=== PATIENT | female | born 1960 | race Caucasian/White ===

== ENCOUNTER 2025-01-19 12:54 | Inpatient (IN) | payer SELFPAY ==
[~2025-01-19 12:54] MED LIST: Iopamidol-370 76% 500 ML MDV (1 ML CHARGE) ONE
[2025-01-19 14:38] LABS: #Basophils 0.03 10x3/uL (0.0-0.2); #Eosinophils 0.10 10x3/uL (0.0-0.7); #Monocytes 0.95 10x3/uL (0.11-0.59); #Neutrophils 7.14 10x3/uL (1.40-6.50); %Basophils 0.3 % (0.0-1.0); %Eosinophils 1.0 % (0.0-10.0); %Lymphocytes 14.2 % (21.0-51.0); %Monocytes 9.9 % (0.0-10.0); %Neutrophils 74.3 % (42.0-75.0); Hematocrit 40.1 % (36.0-47.0); Hemoglobin 12.3 g/dL (12.0-16.0); Mean Corpuscular Hemoglobin 26.2 pg (27.0-31.0); Mean Corpuscular Volume 85.5 fL (78.0-98.0); Platelet Count 634 10x3/uL (130-400); Red Blood Cell (RBC) Count 4.69 mill/uL (4.20-5.40); White Blood Cell (WBC) Count 9.61 10x3/uL (4.8-10.8)
[2025-01-19 14:56] LABS: ALT (SGPT) 9 U/L (Less than 34); AST (SGOT) 30 U/L (11-34); Albumin 3.0 g/dL (3.1-4.5); Alkaline Phosphatase 170 U/L (40-110); Anion Gap 14 mmol/L (10-20); BUN (Urea Nitrogen) 22 mg/dL (9.8-20.1); Bilirubin, Total 0.6 mg/dL (0.3-1.2); Calc. Creatinine Clearance 0 mL/min (70-130); Calcium 9.5 mg/dL (7.8-10.44); Carbon Dioxide 29 mmol/L (23-31); Chloride 102 mmol/L (98-107); Globulin 4.1 g/dL (2.4-3.5); Glucose 102 mg/dL (80-115); Potassium 3.8 mmol/L (3.5-5.1); Sodium 141 mmol/L (136-145)
[2025-01-19] MEDS ORDERED: Calcium Carbonate 500 MG ChewTAB PO PRN (18:23)
[2025-01-19] MEDS ORDERED: Guaifenesin DM 100-10/5 ML UDCUP PO PRN (18:23)
[2025-01-19 20:28] VITALS: BMI 29.2
[2025-01-19] MEDS: Acetaminophen 325 MG TAB PO SCH (21:01)
[2025-01-20 05:56] LABS: #Basophils 0.03 10x3/uL (0.0-0.2); #Eosinophils 0.12 10x3/uL (0.0-0.7); #Monocytes 0.90 10x3/uL (0.11-0.59); #Neutrophils 6.57 10x3/uL (1.40-6.50); %Basophils 0.3 % (0.0-1.0); %Eosinophils 1.3 % (0.0-10.0); %Lymphocytes 14.1 % (21.0-51.0); %Monocytes 10.1 % (0.0-10.0); %Neutrophils 73.8 % (42.0-75.0); Hematocrit 36.0 % (36.0-47.0); Hemoglobin 11.0 g/dL (12.0-16.0); Mean Corpuscular Hemoglobin 26.3 pg (27.0-31.0); Mean Corpuscular Volume 86.1 fL (78.0-98.0); Platelet Count 580 10x3/uL (130-400); Red Blood Cell (RBC) Count 4.18 mill/uL (4.20-5.40); White Blood Cell (WBC) Count 8.92 10x3/uL (4.8-10.8)
[2025-01-20 06:30] LABS: Anion Gap 14 mmol/L (10-20); BUN (Urea Nitrogen) 18 mg/dL (9.8-20.1); Calc. Creatinine Clearance 142 mL/min (70-130); Calcium 9.1 mg/dL (7.8-10.44); Carbon Dioxide 26 mmol/L (23-31); Chloride 104 mmol/L (98-107); Glucose 91 mg/dL (80-115); Potassium 3.7 mmol/L (3.5-5.1); Sodium 140 mmol/L (136-145)
[2025-01-20 11:26] LABS: Fluid, pH - Pleural Fld Greater than 7.500 (7.60 - 7.66)
[2025-01-20 11:39] LABS: Fluid, Triglycerides 43 mg/dL (Not Available); Pleural Fluid, Amylase Less than 30 U/L (Not Available); Pleural Fluid, Glucose 62 mg/dL; Pleural Fluid, LDH 313 U/L (Not Available); Pleural Fluid, Protein 4.0 g/dL
[2025-01-20 12:17] LABS: RBC Count-Automated (BF) 54853 /cu.mm; WBC/Nucleated-Auto (BF) 959 /cu.mm
[2025-01-20 12:24] LABS: RBC Count-Automated (BF) 39744 /cu.mm; WBC/Nucleated-Auto (BF) 5477 /cu.mm
[2025-01-20 12:26] LABS: Fluid, Triglycerides 53 mg/dL (Not Available); Pleural Fluid, Amylase Less than 30 U/L (Not Available); Pleural Fluid, Glucose 50 mg/dL; Pleural Fluid, LDH 635 U/L (Not Available); Pleural Fluid, Protein 4.1 g/dL
[2025-01-20 13:04] LABS: BF Segmented Neutrophils 66 %; Cell Count Non Hematic 5 %
[2025-01-20 13:26] LABS: BF Segmented Neutrophils 4 %; Cell Count Non Hematic 49 %
[2025-01-20] MEDS: Albumin 25% 25 GM (100 mL) BOT IVPB SCH ×2 (14:46→18:38)
[2025-01-21 06:00] LABS: ALT (SGPT) 9 U/L (Less than 34); AST (SGOT) 20 U/L (11-34); Albumin 3.1 g/dL (3.1-4.5); Alkaline Phosphatase 165 U/L (40-110); Anion Gap 12 mmol/L (10-20); BUN (Urea Nitrogen) 13 mg/dL (9.8-20.1); Bilirubin, Total 1.0 mg/dL (0.3-1.2); Calc. Creatinine Clearance 125 mL/min (70-130); Calcium 9.1 mg/dL (7.8-10.44); Carbon Dioxide 29 mmol/L (23-31); Chloride 104 mmol/L (98-107); Globulin 2.7 g/dL (2.4-3.5); Glucose 91 mg/dL (80-115); Potassium 3.9 mmol/L (3.5-5.1); Sodium 141 mmol/L (136-145)
[2025-01-21 06:04] LABS: #Basophils Less than 0.03 10x3/uL (0.0-0.2); #Eosinophils 0.14 10x3/uL (0.0-0.7); #Monocytes 0.86 10x3/uL (0.11-0.59); #Neutrophils 5.75 10x3/uL (1.40-6.50); %Basophils 0.2 % (0.0-1.0); %Eosinophils 1.7 % (0.0-10.0); %Lymphocytes 15.3 % (21.0-51.0); %Monocytes 10.7 % (0.0-10.0); %Neutrophils 71.6 % (42.0-75.0); Hematocrit 34.2 % (36.0-47.0); Hemoglobin 10.6 g/dL (12.0-16.0); Mean Corpuscular Hemoglobin 26.9 pg (27.0-31.0); Mean Corpuscular Volume 86.8 fL (78.0-98.0); Platelet Count 556 10x3/uL (130-400); Red Blood Cell (RBC) Count 3.94 mill/uL (4.20-5.40); White Blood Cell (WBC) Count 8.04 10x3/uL (4.8-10.8)
[2025-01-21 09:31] LABS: INR-International Normal Ratio 1.1; Prothrombin Time 13.8 sec (12.0-14.7)
[2025-01-21 09:32] LABS: PTT 41.5 sec (22.9-36.1)
[2025-01-21] MEDS ORDERED: Sodium Bicarbonate 2.5 MEQ/5 ML SDV ONE (13:07)
[2025-01-21] MEDS ORDERED: Lidocaine 1% w/Epinephrine 1:100K 20 ML VIAL ONE (13:07)
[2025-01-22 07:42] LABS: #Basophils Less than 0.03 10x3/uL (0.0-0.2); #Eosinophils 0.09 10x3/uL (0.0-0.7); #Monocytes 0.85 10x3/uL (0.11-0.59); #Neutrophils 6.24 10x3/uL (1.40-6.50); %Basophils 0.2 % (0.0-1.0); %Eosinophils 1.1 % (0.0-10.0); %Lymphocytes 15.0 % (21.0-51.0); %Monocytes 10.0 % (0.0-10.0); %Neutrophils 73.3 % (42.0-75.0); Hematocrit 34.2 % (36.0-47.0); Hemoglobin 10.6 g/dL (12.0-16.0); Mean Corpuscular Hemoglobin 26.6 pg (27.0-31.0); Mean Corpuscular Volume 85.9 fL (78.0-98.0); Platelet Count 594 10x3/uL (130-400); Red Blood Cell (RBC) Count 3.98 mill/uL (4.20-5.40); White Blood Cell (WBC) Count 8.51 10x3/uL (4.8-10.8)
[2025-01-22] MEDS ORDERED: fentaNYL PF 100 MCG/2 ML SYRINGE ONE (12:39)
[2025-01-22] MEDS ORDERED: PROPOFOL 20 ML ONE (12:39)
[2025-01-22] MEDS ORDERED: Lidocaine 1% PF 5 ML VIAL ONE (12:40)
[2025-01-22] MEDS ORDERED: Ondansetron PF 4 MG/2 ML Vial ONE (12:40)
[2025-01-22] MEDS ORDERED: Bupivacaine 0.25% HCL 30 ML VIAL ONE (12:51)
[2025-01-22] MEDS ORDERED: CEFAZOLIN 2 GM VIAL ONE (13:29)
[2025-01-22] MEDS ORDERED: PHENYLEPHRINE-NS 100 MCG/ML 10 ML SYRINGE ONE (13:51)
[2025-01-22 15:17] VITALS: BP 148/75; TEMP 98
== END 2025-01-22 17:32 | disposition home or self-care (01) | DRG 749 ==
LOC: ERS 12:54 → T4-B 18:23
PROVIDERS: ADMIT Internal Medicine; ATTEND Family Medicine
PROC: 0W9B3ZZ Drainage of Left Pleural Cavity, Percutaneous Approach (ICD-10-PCS; 2025-01-20)
PROC: 0W993ZZ Drainage of Right Pleural Cavity, Percutaneous Approach (ICD-10-PCS; 2025-01-20)
PROC: 30233J1 Transfusion of Nonautologous Serum Albumin into Peripheral Vein, Percutaneous Approach (ICD-10-PCS; 2025-01-20)
PROC: 0W9G3ZZ Drainage of Peritoneal Cavity, Percutaneous Approach (ICD-10-PCS; 2025-01-21)
PROC: 0JH60WZ Insertion of Totally Implantable Vascular Access Device into Chest Subcutaneous Tissue and Fascia, Open Approach (ICD-10-PCS; principal; 2025-01-22)
PROC: 02HV33Z Insertion of Infusion Device into Superior Vena Cava, Percutaneous Approach (ICD-10-PCS; 2025-01-22)
PROC: B518ZZA Fluoroscopy of Superior Vena Cava, Guidance (ICD-10-PCS; 2025-01-22)
PROC: 3E03329 Introduction of Other Anti-infective into Peripheral Vein, Percutaneous Approach (ICD-10-PCS; 2025-01-22)
PROC: 3E033XZ Introduction of Vasopressor into Peripheral Vein, Percutaneous Approach (ICD-10-PCS; 2025-01-22)
DX: C56.9 Malignant neoplasm of unspecified ovary (principal); C77.2 Secondary and unspecified malignant neoplasm of intra-abdominal lymph nodes; C78.2 Secondary malignant neoplasm of pleura; C78.6 Secondary malignant neoplasm of retroperitoneum and peritoneum; R18.0 Malignant ascites; J91.0 Malignant pleural effusion; Z98.890 Other specified postprocedural states; Z82.49 Family history of ischemic heart disease and other diseases of the circulatory system; Z79.82 Long term (current) use of aspirin; Z79.899 Other long term (current) drug therapy; Q82.0 Hereditary lymphedema; R97.1 Elevated cancer antigen 125 [CA 125]
CPT/HCPCS: 36415; 49083; 71045; 71275; 80048; 80053; 82150; 82945; 83615; 83880; 83986; 84157; 84478; 84484; 85025; 85060; 85610; 85730; 87116; 87206; 88112; 88305; 89051; 93005; C1788; J0169; J0665; J1100; J1642; J2405; J2704; P9047; Q9967

== ENCOUNTER 2025-02-13 18:20 | Observation (INO) | payer SELFPAY ==
[2025-02-13 23:31] LABS: Platelet Adequacy Comment Platelets Increased; Smudge Cells 7.0 %
[2025-02-13 23:33] LABS: Hematocrit 36.5 % (36.0-47.0); Hemoglobin 11.2 g/dL (12.0-16.0); Mean Corpuscular Hemoglobin 26.6 pg (27.0-31.0); Mean Corpuscular Volume 86.7 fL (78.0-98.0); Platelet Count 508 10x3/uL (130-400); Red Blood Cell (RBC) Count 4.21 mill/uL (4.20-5.40); White Blood Cell (WBC) Count 29.70 10x3/uL (4.8-10.8)
[2025-02-13 23:44] LABS: ALT (SGPT) 16 U/L (Less than 34); AST (SGOT) 26 U/L (11-34); Albumin 3.0 g/dL (3.1-4.5); Alkaline Phosphatase 150 U/L (40-110); Anion Gap 12 mmol/L (10-20); BUN (Urea Nitrogen) 17 mg/dL (9.8-20.1); Bilirubin, Total 0.7 mg/dL (0.3-1.2); Calc. Creatinine Clearance 0 mL/min (70-130); Calcium 8.9 mg/dL (7.8-10.44); Carbon Dioxide 27 mmol/L (23-31); Chloride 101 mmol/L (98-107); Globulin 2.9 g/dL (2.4-3.5); Glucose 106 mg/dL (80-115); Potassium 4.0 mmol/L (3.5-5.1); Sodium 136 mmol/L (136-145)
[2025-02-14] MEDS ORDERED: cefTRIAXone (ROCEPHIN) 1 GM VIAL ONE (00:06)
[2025-02-14] MEDS ORDERED: Ondansetron PF 4 MG/2 ML Vial IVP PRN (04:16)
[2025-02-14] MEDS ORDERED: Acetaminophen 325 MG TAB PO PRN (04:16)
[2025-02-14] MEDS ORDERED: Bisacodyl 10 MG SUPP PR PRN (04:18)
[2025-02-14] MEDS ORDERED: Calcium Carbonate 500 MG ChewTAB PO PRN (04:18)
[2025-02-14] MEDS ORDERED: Senokot S 8.6-50 MG TAB PO PRN (04:18)
[2025-02-14] MEDS ORDERED: Electrolyte Replacement Protocol 1 EACH FS SCH (04:30)
[2025-02-14] MEDS ORDERED: Magnesium 2 GM/50 ML(in water) 2 GM in Premix 1 BAG IVPB PRN (04:45)
[2025-02-14] MEDS ORDERED: Potassium Chloride 20 MEQ in Premix 1 BAG IVPB PRN (04:45)
[2025-02-14] MEDS ORDERED: PHOS-NAK 1 PKT PACK PO PRN (04:45)
[2025-02-14 05:20] VITALS: BMI 26.1
[2025-02-14] MEDS ORDERED: Enoxaparin 80 MG (0.8 mL) SYRINGE SC SCH (09:00)
[2025-02-14] MEDS: Multivitamin w/Zinc Stress 1 TAB PO SCH (09:24)
[2025-02-14] MEDS: Calcium Carbonate 600 MG + Vit D TAB PO SCH (09:24)
[2025-02-14] MEDS: Apixaban 5 MG TAB PO SCH (09:24)
[2025-02-14] MEDS: Ferrous Sulfate 325 MG TAB PO SCH (09:24)
[2025-02-14 11:41] LABS: INR-International Normal Ratio 1.1; Prothrombin Time 14.1 sec (12.0-14.7)
[2025-02-14] MEDS: Enoxaparin 80 MG (0.8 mL) SYRINGE SC SCH (20:19)
[2025-02-15 07:36] LABS: ALT (SGPT) 15 U/L (Less than 34); AST (SGOT) 42 U/L (11-34); Albumin 2.6 g/dL (3.1-4.5); Alkaline Phosphatase 155 U/L (40-110); BUN (Urea Nitrogen) 13 mg/dL (9.8-20.1); Bilirubin, Total 0.4 mg/dL (0.3-1.2); Calc. Creatinine Clearance 118 mL/min (70-130); Calcium 8.5 mg/dL (7.8-10.44); Carbon Dioxide 26 mmol/L (23-31); Globulin 2.5 g/dL (2.4-3.5); Glucose 84 mg/dL (80-115)
[2025-02-15 07:53] LABS: Anion Gap 16 mmol/L (10-20); Chloride 101 mmol/L (98-107); Potassium 4.1 mmol/L (3.5-5.1); Sodium 138 mmol/L (136-145)
[2025-02-15 08:17] LABS: Ovalocytes SLIGHT = 2-5 cells HPF (0-1); Platelet Adequacy Comment Platelets Increased; Polychromasia SLIGHT = 2-3 cells HPF (0-2)
[2025-02-15 08:24] LABS: Hematocrit 33.8 % (36.0-47.0); Hemoglobin 10.5 g/dL (12.0-16.0); Mean Corpuscular Hemoglobin 26.4 pg (27.0-31.0); Mean Corpuscular Volume 85.1 fL (78.0-98.0); Platelet Count 485 10x3/uL (130-400); Red Blood Cell (RBC) Count 3.97 mill/uL (4.20-5.40); White Blood Cell (WBC) Count 14.95 10x3/uL (4.8-10.8)
[2025-02-15] MEDS: Ferrous Sulfate 325 MG TAB PO SCH (08:30)
[2025-02-15] MEDS: Enoxaparin 80 MG (0.8 mL) SYRINGE SC SCH (11:22)
[2025-02-15] MEDS: Furosemide 40 MG (4 mL) VIAL SLOW IVP SCH (11:23)
[2025-02-15] MEDS ORDERED: Apixaban 5 MG TAB PO SCH (21:00)
[2025-02-16] MEDS: Furosemide 40 MG (4 mL) VIAL SLOW IVP SCH (08:10)
[2025-02-16 09:31] VITALS: BP 116/73; TEMP 97.4
[2025-02-16] MEDS ORDERED: Lidocaine 1% PF 5 ML VIAL ONE (10:28)
[2025-02-16] MEDS ORDERED: Sodium Bicarbonate 2.5 MEQ/5 ML SDV ONE (10:28)
[2025-02-16 11:51] LABS: RBC Count-Automated (BF) 1481 /cu.mm; WBC/Nucleated-Auto (BF) 51 /cu.mm
[2025-02-16 12:06] LABS: Fluid, LDH 196.0 U/L (Not Available); Fluid, Protein 3.3 g/dL (Not Available)
[2025-02-16 12:21] LABS: BF Segmented Neutrophils 2 %; Cell Count Non Hematic 63 %
== END 2025-02-16 14:12 | disposition home or self-care (01) ==
LOC: ERS 18:20 → ERHOLD 02-14 01:51 → T4-B 02-14 07:46
PROVIDERS: ADMIT Internal Medicine; ATTEND Family Medicine
PROC: 0W9G3ZZ Drainage of Peritoneal Cavity, Percutaneous Approach (ICD-10-PCS; principal; 2025-02-16)
DX: C79.60 Secondary malignant neoplasm of unspecified ovary (principal); R18.0 Malignant ascites; D63.8 Anemia in other chronic diseases classified elsewhere; D72.829 Elevated white blood cell count, unspecified; Z86.718 Personal history of other venous thrombosis and embolism
CPT/HCPCS: 36415; 49083; 71045; 80053; 83605; 83615; 84157; 85025; 85060; 85610; 87040; 87070; 87205; 88112; 88305; 89051; 93005; 96372; 96375; 96376; G0378; J0696; J1650; J1940; Q0162

== ENCOUNTER 2025-02-23 14:12 | Outpatient (CLI) | payer OTHER | END 2025-02-23 14:13 | disposition home or self-care (01) | LOC: RAD 14:12 | PROVIDERS: ATTEND Student in an Organized Health Care Education/Training Program | DX: J90 Pleural effusion, not elsewhere classified (principal) | CPT/HCPCS: 71046 ==

== ENCOUNTER 2025-03-17 14:19 | Inpatient (IN) | payer SELFPAY ==
[2025-03-17 16:20] LABS: Hematocrit 33.6 % (36.0-47.0); Hemoglobin 10.7 g/dL (12.0-16.0); Mean Corpuscular Hemoglobin 28.8 pg (27.0-31.0); Mean Corpuscular Volume 90.6 fL (78.0-98.0); Platelet Count 261 10x3/uL (130-400); Red Blood Cell (RBC) Count 3.71 mill/uL (4.20-5.40); White Blood Cell (WBC) Count 25.53 10x3/uL (4.8-10.8)
[2025-03-17 16:36] LABS: ALT (SGPT) 15 U/L (Less than 34); AST (SGOT) 24 U/L (11-34); Albumin 3.5 g/dL (3.1-4.5); Alkaline Phosphatase 174 U/L (40-110); Anion Gap 11 mmol/L (10-20); BUN (Urea Nitrogen) 9 mg/dL (9.8-20.1); Bilirubin, Total 0.3 mg/dL (0.3-1.2); Calc. Creatinine Clearance 0 mL/min (70-130); Calcium 9.8 mg/dL (7.8-10.44); Carbon Dioxide 31 mmol/L (23-31); Chloride 99 mmol/L (98-107); Globulin 2.8 g/dL (2.4-3.5); Glucose 95 mg/dL (80-115); Potassium 4.3 mmol/L (3.5-5.1); Sodium 137 mmol/L (136-145)
[2025-03-17 16:37] LABS: Anisocytosis SLIGHT = 6-15 cells HPF (0-5); Macrocytosis SLIGHT = 6-15 cells HPF (0-5); Ovalocytes SLIGHT = 2-5 cells HPF (0-1); Platelet Adequacy Comment Platelets Normal; Polychromasia SLIGHT = 2-3 cells HPF (0-2); Smudge Cells 2.0 %
[2025-03-17 17:20] LABS: Bacteria/HPF None Seen HPF (None Seen); CAUTI Indications for Culture Dysuria,urgency,freq; Glucose, Urine (Dipstick) Normal (Negative); Leukocyte Negative Leu/uL (Negative); Protein, Urine (Dipstick) Negative (Neg-Trace); RBC/HPF 0-3 HPF (0-3); Specific Gravity, Urine 1.010 (1.002-1.036); WBC/HPF 0-3 HPF (0-3)
[2025-03-17 17:22] LABS: Urine Culture Reflex No No
[2025-03-17] MEDS ORDERED: Cefepime 2 GM VIAL ONE (18:04)
[2025-03-17] MEDS ORDERED: VANCOMYCIN 2 GRAM/400 ML BAG 400 ML ONE (18:54)
[2025-03-17] MEDS ORDERED: Guaifenesin DM 100-10/5 ML UDCUP PO PRN (19:05)
[2025-03-17] MEDS ORDERED: Ondansetron PF 4 MG/2 ML Vial IVP PRN (19:05)
[2025-03-17] MEDS: Apixaban 5 MG TAB PO SCH (22:40)
[2025-03-18 00:42] VITALS: BMI 27.3
[2025-03-18] MEDS: Acetaminophen 325 MG TAB PO PRN (02:17)
[2025-03-18 04:43] LABS: #Basophils 0.04 10x3/uL (0.0-0.2); #Eosinophils 0.03 10x3/uL (0.0-0.7); #Monocytes 0.69 10x3/uL (0.11-0.59); #Neutrophils 16.18 10x3/uL (1.40-6.50); %Basophils 0.2 % (0.0-1.0); %Eosinophils 0.2 % (0.0-10.0); %Lymphocytes 9.6 % (21.0-51.0); %Monocytes 3.6 % (0.0-10.0); %Neutrophils 85.5 % (42.0-75.0); Hematocrit 33.5 % (36.0-47.0); Hemoglobin 10.1 g/dL (12.0-16.0); Mean Corpuscular Hemoglobin 28.5 pg (27.0-31.0); Mean Corpuscular Volume 94.6 fL (78.0-98.0); Platelet Count 247 10x3/uL (130-400); Red Blood Cell (RBC) Count 3.54 mill/uL (4.20-5.40); White Blood Cell (WBC) Count 18.93 10x3/uL (4.8-10.8)
[2025-03-18 04:45] LABS: Anion Gap 12 mmol/L (10-20); BUN (Urea Nitrogen) 10 mg/dL (9.8-20.1); Calc. Creatinine Clearance 123 mL/min (70-130); Calcium 9.1 mg/dL (7.8-10.44); Carbon Dioxide 30 mmol/L (23-31); Chloride 103 mmol/L (98-107); Glucose 98 mg/dL (80-115); Potassium 4.3 mmol/L (3.5-5.1); Sodium 141 mmol/L (136-145)
[2025-03-18] MEDS: Calcium Carbonate 600 MG + Vit D TAB PO SCH (09:15)
[2025-03-18] MEDS: Calcium Carbonate 500 MG ChewTAB PO PRN (09:16)
[2025-03-18] MEDS: Ferrous Sulfate 325 MG TAB PO SCH (09:16)
[2025-03-18] MEDS: Multivitamin w/Zinc Stress 1 TAB PO SCH (09:51)
[2025-03-18] MEDS: PNEUMOC 20-VAL CONJ-DIP CRM/PF 0.5 ML SYRINGE IM ONE (13:40)
[2025-03-18] MEDS: Pantoprazole 40 MG DR.TAB PO SCH (15:59)
[2025-03-19 05:03] LABS: #Basophils 0.04 10x3/uL (0.0-0.2); #Eosinophils 0.04 10x3/uL (0.0-0.7); #Monocytes 0.49 10x3/uL (0.11-0.59); #Neutrophils 7.59 10x3/uL (1.40-6.50); %Basophils 0.4 % (0.0-1.0); %Eosinophils 0.4 % (0.0-10.0); %Lymphocytes 15.5 % (21.0-51.0); %Monocytes 5.0 % (0.0-10.0); %Neutrophils 77.8 % (42.0-75.0); Hematocrit 31.4 % (36.0-47.0); Hemoglobin 9.8 g/dL (12.0-16.0); Mean Corpuscular Hemoglobin 29.3 pg (27.0-31.0); Mean Corpuscular Volume 93.7 fL (78.0-98.0); Platelet Count 217 10x3/uL (130-400); Red Blood Cell (RBC) Count 3.35 mill/uL (4.20-5.40); White Blood Cell (WBC) Count 9.76 10x3/uL (4.8-10.8)
[2025-03-19 06:23] LABS: Anion Gap 12 mmol/L (10-20); BUN (Urea Nitrogen) 8 mg/dL (9.8-20.1); Calc. Creatinine Clearance 123 mL/min (70-130); Calcium 9.0 mg/dL (7.8-10.44); Carbon Dioxide 29 mmol/L (23-31); Chloride 105 mmol/L (98-107); Glucose 91 mg/dL (80-115); Potassium 4.1 mmol/L (3.5-5.1); Sodium 142 mmol/L (136-145)
[2025-03-19] MEDS: Pantoprazole 40 MG DR.TAB PO SCH (08:17)
[2025-03-19] MEDS ORDERED: Sodium Bicarbonate 2.5 MEQ/5 ML SDV ONE (13:11)
[2025-03-19] MEDS ORDERED: Lidocaine 1% PF 5 ML VIAL ONE (13:11)
[2025-03-20 04:36] LABS: #Basophils Less than 0.03 10x3/uL (0.0-0.2); #Eosinophils 0.03 10x3/uL (0.0-0.7); #Monocytes 0.61 10x3/uL (0.11-0.59); #Neutrophils 7.90 10x3/uL (1.40-6.50); %Basophils 0.2 % (0.0-1.0); %Eosinophils 0.3 % (0.0-10.0); %Lymphocytes 16.9 % (21.0-51.0); %Monocytes 5.9 % (0.0-10.0); %Neutrophils 76.0 % (42.0-75.0); Hematocrit 32.8 % (36.0-47.0); Hemoglobin 10.2 g/dL (12.0-16.0); Mean Corpuscular Hemoglobin 28.9 pg (27.0-31.0); Mean Corpuscular Volume 92.9 fL (78.0-98.0); Platelet Count 238 10x3/uL (130-400); Red Blood Cell (RBC) Count 3.53 mill/uL (4.20-5.40); White Blood Cell (WBC) Count 10.38 10x3/uL (4.8-10.8)
[2025-03-20 04:46] LABS: Anion Gap 11 mmol/L (10-20); BUN (Urea Nitrogen) 9 mg/dL (9.8-20.1); Calc. Creatinine Clearance 131 mL/min (70-130); Calcium 8.8 mg/dL (7.8-10.44); Carbon Dioxide 29 mmol/L (23-31); Chloride 105 mmol/L (98-107); Glucose 88 mg/dL (80-115); Potassium 4.4 mmol/L (3.5-5.1); Sodium 141 mmol/L (136-145)
[2025-03-20 12:15] VITALS: BP 110/73; TEMP 98.5
== END 2025-03-20 12:41 | disposition home or self-care (01) | DRG 872 ==
LOC: ERS 14:19 → MSONC 18:01
PROVIDERS: ADMIT Internal Medicine; ATTEND Internal Medicine
PROC: 3E03329 Introduction of Other Anti-infective into Peripheral Vein, Percutaneous Approach (ICD-10-PCS; principal; 2025-03-18)
PROC: 0W9G3ZZ Drainage of Peritoneal Cavity, Percutaneous Approach (ICD-10-PCS; 2025-03-19)
DX: A41.9 Sepsis, unspecified organism (principal); C56.9 Malignant neoplasm of unspecified ovary; J90 Pleural effusion, not elsewhere classified; R18.8 Other ascites; D64.9 Anemia, unspecified; J32.9 Chronic sinusitis, unspecified
CPT/HCPCS: 36415; 49083; 71045; 74177; 80048; 80053; 81001; 83605; 83690; 85025; 87040; 93005; 96365; 96366; 96367; J0692; J3375; Q9967

== ENCOUNTER 2025-03-27 11:26 | Observation (INO) | payer SELFPAY ==
[2025-03-27] MEDS ORDERED: Pantoprazole 40 MG VIAL ONE (12:12)
[2025-03-27 12:21] LABS: Bacteria/HPF None Seen HPF (None Seen); CAUTI Indications for Culture Pelvic or flank pain; Glucose, Urine (Dipstick) Normal (Negative); Leukocyte Negative Leu/uL (Negative); Protein, Urine (Dipstick) Negative (Neg-Trace); RBC/HPF 0-3 HPF (0-3); Specific Gravity, Urine 1.008 (1.002-1.036); WBC/HPF 0-3 HPF (0-3)
[2025-03-27 12:23] LABS: Urine Culture Reflex No No
[2025-03-27 12:27] LABS: INR-International Normal Ratio 0.9; PTT 28.2 sec (22.9-36.1); Prothrombin Time 12.6 sec (12.0-14.7)
[2025-03-27 12:28] LABS: ALT (SGPT) 12 U/L (Less than 34); AST (SGOT) 25 U/L (11-34); Albumin 3.4 g/dL (3.1-4.5); Alkaline Phosphatase 155 U/L (40-110); Anion Gap 13 mmol/L (10-20); BUN (Urea Nitrogen) 12 mg/dL (9.8-20.1); Bilirubin, Total 0.6 mg/dL (0.3-1.2); Calc. Creatinine Clearance 0 mL/min (70-130); Calcium 9.3 mg/dL (7.8-10.44); Carbon Dioxide 28 mmol/L (23-31); Chloride 100 mmol/L (98-107); Globulin 2.8 g/dL (2.4-3.5); Glucose 109 mg/dL (80-115); Lipase 31 U/L (8-78); Potassium 3.9 mmol/L (3.5-5.1); Sodium 137 mmol/L (136-145)
[2025-03-27 12:32] LABS: Hematocrit 34.2 % (36.0-47.0); Hemoglobin 10.8 g/dL (12.0-16.0); Mean Corpuscular Hemoglobin 30.1 pg (27.0-31.0); Mean Corpuscular Volume 95.3 fL (78.0-98.0); Platelet Count 425 10x3/uL (130-400); Red Blood Cell (RBC) Count 3.59 mill/uL (4.20-5.40); White Blood Cell (WBC) Count 32.22 10x3/uL (4.8-10.8)
[2025-03-27 13:03] LABS: Anisocytosis MODERATE=16-30 cells HPF (0-5); Macrocytosis SLIGHT = 6-15 cells HPF (0-5); Ovalocytes SLIGHT = 2-5 cells HPF (0-1); Platelet Adequacy Comment Platelets Increased; Polychromasia MODERATE = 3-4 cells HPF (0-2)
[2025-03-27] MEDS ORDERED: Iopamidol-370 76% 500 ML MDV (1 ML CHARGE) ONE (14:22)
[2025-03-27] MEDS ORDERED: Vancomycin 1 GM/200 ML (FROZEN) BAG ONE (15:56)
[2025-03-27] MEDS ORDERED: Apixaban 5 MG TAB ONE (16:44)
[2025-03-27 17:25] VITALS: BMI 25.2
[2025-03-27] MEDS ORDERED: Melatonin 3 MG TAB PO PRN (19:16)
[2025-03-27] MEDS ORDERED: Ondansetron PF 4 MG/2 ML Vial IVP PRN (19:16)
[2025-03-27] MEDS ORDERED: Senokot S 8.6-50 MG TAB PO PRN (19:16)
[2025-03-27] MEDS ORDERED: Acetaminophen 325 MG TAB PO PRN (19:16)
[2025-03-28] MEDS: Apixaban 5 MG TAB PO SCH ×2 (05:16→05:21)
[2025-03-28 05:55] LABS: Anion Gap 12 mmol/L (10-20); BUN (Urea Nitrogen) 11 mg/dL (9.8-20.1); Calc. Creatinine Clearance 137 mL/min (70-130); Calcium 9.1 mg/dL (7.8-10.44); Carbon Dioxide 30 mmol/L (23-31); Chloride 105 mmol/L (98-107); Glucose 89 mg/dL (80-115); Potassium 4.8 mmol/L (3.5-5.1); Sodium 142 mmol/L (136-145)
[2025-03-28] MEDS: Pantoprazole 40 MG DR.TAB PO SCH (07:15)
[2025-03-28 07:18] LABS: Macrocytosis SLIGHT = 6-15 cells HPF (0-5); Platelet Adequacy Comment Platelets Normal; Polychromasia SLIGHT = 2-3 cells HPF (0-2); RBC Morphology Within Normal Limits
[2025-03-28] MEDS: Ferrous Sulfate 300 MG (5 mL) UDCUP PO SCH (07:18)
[2025-03-28] MEDS: Multivitamin w/Zinc Stress 1 TAB PO SCH (07:20)
[2025-03-28] MEDS: Calcium Carbonate 600 MG + Vit D TAB PO SCH (07:21)
[2025-03-28 07:28] LABS: Hematocrit 31.7 % (36.0-47.0); Hemoglobin 10.0 g/dL (12.0-16.0); Mean Corpuscular Hemoglobin 30.1 pg (27.0-31.0); Mean Corpuscular Volume 95.5 fL (78.0-98.0); Platelet Count 388 10x3/uL (130-400); Red Blood Cell (RBC) Count 3.32 mill/uL (4.20-5.40); White Blood Cell (WBC) Count 12.65 10x3/uL (4.8-10.8)
[2025-03-28] MEDS ORDERED: Non-Formulary Item 1 EACH (Potassium Chloride [Potassium Chloride] 20 MEQ Tablet.Er) PO SCH (09:00)
[2025-03-28 13:17] VITALS: BP 133/75; TEMP 97.4
== END 2025-03-28 13:20 | disposition home or self-care (01) ==
LOC: ERS 11:26 → MSONC 16:18
PROVIDERS: ADMIT Hospitalist; ATTEND Family Medicine
DX: K64.9 Unspecified hemorrhoids (principal); R00.0 Tachycardia, unspecified; C79.60 Secondary malignant neoplasm of unspecified ovary; C78.6 Secondary malignant neoplasm of retroperitoneum and peritoneum; D64.9 Anemia, unspecified; R18.8 Other ascites
CPT/HCPCS: 36415; 71045; 71275; 74177; 80048; 80053; 81001; 83605; 83690; 83880; 84484; 85025; 85610; 85730; 87040; 87086; 93005; 96365; 96367; G0378; J2470; J2543; J3373; Q9967